=== PATIENT | female | born 1980 | race Caucasian/White ===

== ENCOUNTER 2019-06-13 18:37 | Observation (INO) | payer BC, SELFPAY ==
[2019-03-18 16:35] VITALS: BMI 39.3
--- NOTE | 2019-06-04 10:58 | PCM.HP.BLA ---
History and Physical Date of Admission: 06/13/19 Rosy Chaudhary Physician OFFICE SYSTEMS TECHNOLOGY INSTRUCTOR H&P Signed Encounter Date: 06/04/2019 Expand All Collapse All Hide copied text Anival for details Carley Boyer is a 39 year old female who presents for abnormal uterine bleeding, dysmenorrhea, adenomyosis, pelvic pain. Patient is scheduled for total upper Jeffrey hysterectomy bilateral salpingectomy cystoscopy with possible adhesiolysis and possible bowel resection. Patient has had a history of sigmoid colectomy previously. Patient has tried hormonal therapy without success. Patient declines any further treatment besides surgical management. Patient today denies any chest pain, shortness of breath or dizziness. Patient does have a mild cold but denies any fevers. ? PAST?MEDICAL?HISTORY PAST MEDICAL HISTORY Diagnosis Date ? Constipation ? ? PMH - PAST MEDICAL HISTORY OF 2005 ? TORSION OF SIGMOID VOLVULUS ? Urethral stricture unspecified ? ? HX OF URETHRAL STENOSIS ? VOLVULUS COLON (Sigmoid) 04/06/2006 ? PAST?SURGICAL?HISTORY PAST SURGICAL HISTORY Procedure Laterality Date ? COLONOSCOP W/ OR W/O [facility] SPEC ? 03/21/06 ? COLONOSCOPY W/BX ? 03/23/06 ? COLONOSCOPY W/BX ? 09/22/09 ? Normal colon/patent colorectal anastomosis ? EYE SURGERY HX ? ? ? PAST SURGICAL HISTORY OF ? 1980,1983 ? urethral dilation ? PROCTECTOMY,COMPL,COLECTOMY,BX'S ? 03/23/06 ? lap sigmoid colectomy ? FAMILY?HISTORY FAMILY HISTORY Problem Relation Age of Onset ? other (precancerous uterine cells) Mother ? ? hyst ? other (Other) Brother ? ? Half-brother ? other (Other) Father ? ? No contact with Father ? other (Other) Brother ? ? half-brother ? Thyroid Maternal Grandmother ? ? Alzheimer's Disease Maternal Grandmother ? ? other (PRECANCEROUS UTERINE CELLS) Maternal Grandmother ? ? HYST ? Hypertension Maternal Grandfather ? ? No Known Problems Daughter ? ? No Known Problems Son ? ? SOCIAL?HISTORY Social History Socioeconomic History Marital status: Spouse name: NANCI Number of children: 2 Years of education: 16 Highest education level: Not on file Occupational History Occupation: Office Employer: [employer] Social Needs Financial resource strain: Not on file Food insecurity: Worry: Not on file Inability: Not on file Transportation needs: Medical: Not on file Non-medical: Not on file Tobacco Use Smoking status: Never Smoker Smokeless tobacco: Never Used Substance and Sexual Activity Alcohol use: Yes Comment: Rarely Drug use: No Sexual activity: Yes Partners: Male control/protection: Condom Lifestyle Physical activity: Days per week: Not on file Minutes per session: Not on file Stress: Not on file Relationships Social connections: Talks on phone: Not on file Gets together: Not on file Attends latter day service: Not on file Active member of club or organization: Not on file Attends meetings of clubs or organizations: Not on file Relationship status: Not on file Intimate partner violence: Fear of current or ex partner: Not on file Emotionally abused: Not on file Physically abused: Not on file Forced sexual activity: Not on file Other Topics Concerns: Not on file Social History Narrative Not on file ? CURRENT?MEDICATIONS ? Current Outpatient Medications: levonorgestrel (MIRENA) 20 mcg/24 hours (5 yrs) 52 mg IUD 1 Each by INTRAUTERINE route one time only. fluticasone (FLONASE) 50 mcg/actuation nasal spray Use 2 Sprays in each nostril once daily. docusate sodium (COLACE) 100 mg capsule Take 1 capsule by mouth twice daily. ibuprofen (MOTRIN) 600 mg tablet Take 1 tablet by mouth every 6 hours as needed. FOR PAIN. simethicone, chewable (MYLICON) 80 mg chewable tablet Take 1 tablet by mouth every 6 hours as needed. oxyCODONE-acetaminophen (PERCOCET) 5-325 mg tablet Take 1 tablet by mouth every 4 hours as needed for Pain for up to 7 days. ? No current facility-administered medications for this visit. Allergies As of Date: 06/04/2019 Allergen Noted Reaction AUGMENTIN [AMOXICILLIN-POT CLAVUL*06/07/2010 GI Upset IODINE 02/25/2011 Hives PENICILLINS 03/21/2006 Hives ? Fully Assessed 06/04/2019 ? ? REVIEW OF SYSTEMS Abdomen: Positive pelvic pain. Suffers from constipation. Bladder: No dysuria, gross hematuria, urinary frequency, urinary urgency, or incontinence.. Expanded ROS: GENERAL: Negative for fever Allergies and current medication updated:Yes ? EXAM: BP 106/62 Ht 5' 7 (1.70m) Wt 245 lb (111.1kg) BMI 38.36 kg/(m^2). ? GENERAL: pleasant, female in no apparent distress HEENT: Normocephalic, atraumatic, mucus membranes moist and no lesions NECK: Supple, full range of motion, no adenopathy and thyroid normal DERMATOLOGY: Normal, without lesions, non-icteric and non-hirsute CARDIAC: regular rate and rhythm CHEST: Normal inspiratory effort ABDOMEN: Deferred PELVIC: deferred BIMANUAL: deferred NEURO: alert and oriented x3,exam grossly non-focal EXTREMITIES: normal ? ASSESSMENT AND PLAN: Encounter Diagnosis ? ? ICD-10-CM ? 1. Post-op pain G89.18 oxyCODONE-acetaminophen (PERCOCET) 5-325 mg tablet ? 2. Pt has been counseled on risks/benefits and alternatives of surgery including but not limited to anesthesia, bleeding, infection, injury to pelvic structures including bowel, bladder, ureters and vessels. Pt wishes to proceed with surgery at this time. I reviewed with the patient that due to her surgical history she has a high risk for injury to pelvic structures. I reviewed with patient that if her adhesions are extensive and I do not feel that this can be performed safely I will close and send her to a minimally invasive gynecologic specialist for surgical management. At this time we have general surgery Dr. William on standby due to her history of bowel resection 3. ERAS protocol reviewed 4. Consent signed 5. All post op meds given ? Rosy Saravia MD ?
[2019-06-13] VITALS (14 sets, daily range): BP systolic 83–117; BP diastolic 43–76; PULSE 68–103; RESP 16–18; TEMP 36.2–37.3; O2SAT 95–100; BMI 39.0; BMI 39.9
--- NOTE | 2019-06-13 | HYST_PTH ---
PATIENT: ELY PANDEY FALaurie LOC: MS3 U#:[id number] AGE/SX: 39/F ROOM: MS312 RE06/13/[address]: Dr. Rosy Saravia, MDDOB: 1980 BED: 1 DIS: 06/14/2019 SPEC #: [id number] RECD: 06/13/19 12:02 STATUS: RAJAN KENNA #: [id number] JANELLE: 06/13/19 00:[address]: Rosy Saravia DEPT: SURGICAL PATHOLOGY RECD BY: Bg Lora ENTERED: 06/13/19 12:02 SP TYPE: HYSTERECT OTHR DR: MD Lana Kruger MD Tissues: Uterus, NOS Procedures: Surgery Specimen Level V HEADER OPERATION: Hysterectomy, laparoscopic total, salpingectomy, cysto PRE-OP DIAGNOSIS: Abnormal uterine bleeding, dysmenorrhea, adenomyosis, pelvic pain TISSUE SUBMITTED: Uterus, cervix, bilateral fallopian tubes MICROSCOPIC DIAGNOSIS Uterus, hysterectomy: Cervix - mild chronic inflammation. Endometrium - transition endometrium. Myometrium - leiomyoma and adenomyosis. Right and left fallopian tubes - no pathologic change. AM:bandar 06/14/19 MICROSCOPIC DESCRIPTION Slides are reviewed. GROSS DESCRIPTION Received in fixative is one container labeled with the patient's name and designated uterus, cervix, bilateral fallopian tubes. The specimen consists of Received in fixative is one container labeled with the patient's name and designated uterus. The specimen consists of a hysterectomy specimen consisting of uterus with cervix and attached bilateral fallopian tubes and ovaries. The uterus with cervix weighs 175 gm and measures 12 x 8 x 6.5 cm. The serosal surface is wallace glistening. The ectocervical mucosa is unremarkable. The endocervical canal measures 4.5 cm in length and the endocervical mucosa is wallace glistening and unremarkable. The triangular endometrial cavity measures 6 cm in length and up to 3 cm in width. The endometrium is wallace, glistening and without mass lesion and measures less than 0.1 cm in thickness. The endometrium appears to be unremarkable. The sections of the uterine wall contain a nodular mass measuring 1.8 cm in diameter. Two ill-defined masses are also noted. The uninvolved uterine wall measures up to 3 cm in thickness. The right fallopian measures 6.5 cm in length and up to 0.7 cm in diameter. Fimbrial end is identified. Sections reveal unremarkable cut surfaces. The left fallopian tube is similar in appearance to the right fallopian tube and measures 7 cm in length and up to 1 cm in diameter. Fimbrial end is identified. Sections reveal unremarkable cut surfaces. Medical Records Supervisor sections are submitted in 10 cassettes as follows: 1 - anterior cervix, 2 - posterior cervix, 3 & 4 - anterior uterine wall, 5 & 6 - posterior uterine wall, 7 - nodular mass, 8 - ill-defined nodular mass, 9 - right fallopian tube, 10 - left fallopian tube. LING:bandar 06/13/19 TC: 1 CPT: 08164
[2019-06-13 06:19] LABS: Internal QC Validated? YES +Cl - CLEAR BKGD; Pregnancy, Urine Negative Negative
[2019-06-13 06:27] LABS: Hematocrit 42.3 % (37-47); Hemoglobin 14.1 g/dL (12.0-15.0); Mean Corp Hgb Conc 33.3 g/dL (32-36); Mean Corpuscular Hgb 30.2 pg (27.0-32.0); Mean Corpuscular Volume 90.6 fL (81-99); Mean Platelet Vol. 9.1 fl (6.2-12.0); Platelet Count 260 K/mm3 (150-450); RBC Distribution Width CV 11.9 % (11.6-14.6); Red Blood Count 4.67 M/mm3 (4.2-5.4); White Blood Count 12.3 K/mm3 (4.4-11.0)
[2019-06-13] MEDS: Acetaminophen 500 MG Tablet 1000 MG PO ×2 (06:31→19:19)
[2019-06-13] MEDS: Phenazopyridine 95 MG Tablet 190 MG PO (06:32)
[2019-06-13] MEDS: Celecoxib 200 MG Capsule 400 MG PO (06:32)
[2019-06-13] MEDS: Gabapentin 600 MG Tablet PO (06:33)
[2019-06-13] MEDS: dexAMETHasone 10 MG/ML Vial 8 MG IV (06:36)
[2019-06-13] MEDS: Magnesium Sulfate 4gm/100mL 4 GM/100 ML IV.SOLN. IV (06:37)
[2019-06-13] MEDS: Lactated Ringers 1,000 ML 40 ML IV (06:37)
[2019-06-13] MEDS: Enoxaparin 40 MG/0.4 ML Syringe SC (06:54)
[2019-06-13 07:16] LABS: Bedside Glucose 80 mg/dL (70-110)
[2019-06-13] MEDS: Cefazolin 2 GM in 0.9% Normal Saline 100 ML IV (07:29)
[2019-06-13] MEDS: Bupivacaine Mpf 0.5% 30 ML VIAL (08:01)
[2019-06-13] MEDS: Lubricating Jelly 60 GM Tube 30 GM TOPICAL (08:01)
[2019-06-13] MEDS: Ondansetron 4 MG/2 ML Vial IV (09:51)
[2019-06-13] MEDS: Lactated Ringers 1,000 ML 70 ML IV ×2 (10:00→20:51)
--- NOTE | 2019-06-13 10:07 | DCINST_ITS ---
Discharge Diet: No Restrictions Discharge Activity: Return to Normal Activity, May Not Drive - while taking narcotic pain medications., May Shower May resume sexual activity in: 6-8 weeks Call your doctor if your incision/area has: Continuous Slow Oozing, Sudden Increased Bleeding, Increased Pain/ Swelling, Increased Redness, Foul Smelling Discharge Call your doctor if you observe: Fever of 101 or Higher, Inability to urinate, Inability to have a bowel movement, Using more than one pad per hour Cleanse incision/area with: - - you have skin glue over incisions- do not pick off you may shower and let soap and water run over incisions and dab dry. Allergies/Adverse Reactions: Allergies loratadine Allergy (Mild, Verified 06/13/19 06:24) Unknown Penicillins Allergy (Mild, Verified 06/13/19 06:24) Unknown Iodinated Contrast Media Allergy (Verified 06/13/19 06:24) Hives Medications to take at Discharge fluticasone propionate 50 mcg/actuation nasal spray,suspension 2 spray INTRANASAL DAILY 30 Days #16 05/13/18 Primary Care Physician: Lana Simeon MD [Primary Care Provider] - Test Results: Test results from this visit will be discussed in further detail at your follow- up appointment, if applicable. Please Follow Up With: Rosy Saravia MD When: as scheduled
--- NOTE | 2019-06-13 12:16 | PCM.OPRPT ---
Report of Operation Date of Procedure: 06/13/19 Pre-Operative Diagnosis: AUB, pelvic pain Post-Operative Diagnosis: same Surgery/Procedure Performed:: Total laparoscopic hysterectomy, bilateral salpingectomy, cystoscopy Description of Surgical Findings:: Small physiologic cyst on the left ovary. Normal tubes bilaterally. Small anterior subserosal fibroid. manager credit collections: Shasha Centeno Type of Anesthesia:: General Special Medications: 0.5% marcaine Specimen's removed: Uterus, cervix, bilateral tubes Drains: wyman Estimated Blood Loss (mL): 100 Fluids Replaced: 1100 Description of Procedure: Patient take to OR and prepped and draped in usual sterile fashion in dorsal lithotomy position with her arms tucked in a neurologically safe and neutral position. The uterus sounded to 7.5 cm. The learning and development coordinator uterine manipulator was sutured into place at 12 position and wyman were placed. Attention was turned to the abdomen. Patient surgical history Dr. Pb Garcia was present for placement of ports. All port sites were infiltrated with 1% marcaine before the incisions were made. The anterior abdominal wall was tented up with towel clamps and using a direct entry approach a 5 mm intraumbilical port was placed. Intraperitoneal placement was confirmed with the laparoscope and the pneumoperitoneum was created. The patient was placed in Trendelenburg and 5 mm right and left lower quadrant ports were placed under direct visualization. Air seal rapid insufflator was used. Once inspection of the abdomen was complete there did not appear to be any significant adhesions Dr. Garcia scrubbed out at this time. The bowel was swept away. Ovaries appeared normal. The mesosalpinx starting at fimbriated end were grasped, clamped, sealed and transected with the Ligasure. The round ligaments were divided. The anterior peritoneum was dissected down to create the bladder flap with blunt dissection and the LigaSure. The uterine arteries were isolated, clamped, sealed and cut. There was minimal back bleeding from the uterus. Straight bites on uterine artieries performed to drop them off the cuff. The learning and development coordinator was used as guide to create colpotomy using monopolar tip of ligasure. once specimen was removed attention was turned to vaginal portion. The specimen was handed off. The cuff was closed with interrupted 0-vicryl figure of 8 sutures. Cystoscopy was performed bilateral ureters were visualized with good efflux. bladder was intact. wyman replaced and sponge stick placed in vagina. The pneumoperitoneum was recreated and the cuff and pedicles were hemostatic. A small oozing from the right angle of the cuff. LigaSure was used to cauterize the area. Gertrude was placed over cuff and pedicles. The skin incisions were closed with skin glue and 3-0 monocryl in the LLQ port site. The vaginal sweep was completed by me. Grafts/Implants Used: none Grafts/Implants Used: none - Complications none - Admit VTE Documentation VTE Present on Admission: Yes VTE Mechan Device Prophylaxis: SCD's VTE Pharm Prophylaxis ordered?: Yes
[2019-06-13] MEDS: oxyCODONE 5 MG Tablet PO (12:59)
[2019-06-13 14:12] LABS: Hematocrit 40.5 % (37-47); Hemoglobin 13.8 g/dL (12.0-15.0); Mean Corp Hgb Conc 34.1 g/dL (32-36); Mean Corpuscular Hgb 31.1 pg (27.0-32.0); Mean Corpuscular Volume 91.2 fL (81-99); Mean Platelet Vol. 9.2 fl (6.2-12.0); Platelet Count 250 K/mm3 (150-450); RBC Distribution Width CV 11.9 % (11.6-14.6); RBC Distribution Width SD 39.6 fl (35.1-43.9); Red Blood Count 4.44 M/mm3 (4.2-5.4); White Blood Count 18.2 K/mm3 (4.4-11.0)
[2019-06-13 14:22] LABS: Anion Gap 6 (5-15); BUN 9 mg/dL (7-18); BUN/Creat Ratio 12.4 RATIO (10-20); Calcium,Total 8.3 mg/dL (8.5-10.1); Chloride 106 mmol/L (98-107); Creatinine, Serum 0.72 mg/dL (0.55-1.02); EST Glomerular Filtration Rate 94 mL/min (>60); Est Glom Filt Rate - Afr Amer 114 mL/min (>60); Estimated Creatinine Clearance 96.26 ml/min; Glucose 143 mg/dL (74-106); Potassium 4.2 mmol/L (3.5-5.1); Sodium Level 138 mmol/L (136-145)
[2019-06-13] MEDS: Ketorolac 15 MG/ML Vial 30 MG IV ×2 (16:00→22:13)
[2019-06-13] MEDS: 0.9% NaCl Peripheral Flush Adult/Peds IV (20:51)
[2019-06-13] MEDS: Docusate Sodium 100 MG Capsule PO (22:13)
[2019-06-14] MEDS: Acetaminophen 500 MG Tablet 1000 MG PO ×2 (00:41→05:31)
[2019-06-14] MEDS: Ketorolac 15 MG/ML Vial 30 MG IV (04:43)
[2019-06-14 04:44] VITALS: BP 97/61; PULSE 71; RESP 16; TEMP 36.6; O2SAT 97
[2019-06-14 05:41] LABS: Hematocrit 34.6 % (37-47); Hemoglobin 11.6 g/dL (12.0-15.0); Mean Corp Hgb Conc 33.5 g/dL (32-36); Mean Corpuscular Hgb 30.9 pg (27.0-32.0); Mean Corpuscular Volume 92.3 fL (81-99); Mean Platelet Vol. 9.3 fl (6.2-12.0); Platelet Count 240 K/mm3 (150-450); RBC Distribution Width CV 12.1 % (11.6-14.6); RBC Distribution Width SD 41.1 fl (35.1-43.9); Red Blood Count 3.75 M/mm3 (4.2-5.4); White Blood Count 19.4 K/mm3 (4.4-11.0)
[2019-06-14 07:27] VITALS: O2SAT 95
--- NOTE | 2019-06-14 07:52 | PCM.PN.OB ---
Subjective: Patient seen at bedside, doing well. Patient reports good pain control. Patient states she is passing flatus, awaiting void trial. Coughlin catheter was removed at approximately 530 this morning. Patient reports she has not had much to eat but is tolerating fluids by mouth. She denies any nausea, vomiting, chest pain, shortness of breath. - Physical Exam General: Alert, Oriented x3 Abdomen: Soft, Non-Distended, Passing Flatus, - - Incision sites are dry and intact Extremities: No Calf Tenderness Vital Signs Temp Pulse Resp BP Pulse Ox 98 F 71 16 97/61 97 06/14/19 04:44 06/14/19 04:44 06/14/19 04:44 06/14/19 04:44 06/14/19 04:44 Oxygen Flow Rate (L/min) 6 Oxygen Delivery Method Room Air Weight: 114.1 kg Body Mass Index (BMI) 39.9 Intake and Output for Last 24 Hours 06/12/19 06/13/19 06/14/19 23:59 23:59 23:59 Intake Total 1561.12 / 1561.12 400 / 400 Output Total 2110 / 2110 1200 / 1200 Balance -548.88 / -548.88 -800 / -800 Laboratory Tests Past 24 Hrs 06/13/19 06/13/19 06/14/19 14:03 14:03 05:28 WBC 18.2 H 19.4 H RBC 4.44 3.75 L Hgb 13.8 11.6 L Hct 40.5 34.6 L MCV 91.2 92.3 MCH 31.1 30.9 MCHC 34.1 33.5 RDW Std Deviation 39.6 41.1 RDW Coeff of Jona 11.9 12.1 Plt Count 250 240 MPV 9.2 9.3 Sodium 138 Potassium 4.2 Chloride 106 Carbon Dioxide 26.0 Anion Gap 6 BUN 9 Creatinine 0.72 Estim Creat Clear Calc 96.26 Est GFR (MDRD) Af Amer 114 Est GFR (MDRD) Non-Af 94 BUN/Creatinine Ratio 12.4 Glucose 143 H Calcium 8.3 L Medical Necessity - Tobacco Use Smoking Status: Never smoker Tobacco Use: Non-smoker Assessment/Plan All Active Problems (Last Reviewed 03/18/19 @ 16:36 by Nancy Leonard) Sinusitis, acute (Acute) We have day #1, status post a total laparoscopic hysterectomy, bilateral salpingectomy, cystoscopy Patient doing well today vital signs are stable Labs reviewed Voiding trial-if unable to void by lunchtime discussed with the patient that we will send her home with a Coughlin to leg bag and then she will follow-up in the office next week. Anticipate DC home after voiding and tolerating regular diet
[2019-06-14 08:46] VITALS: BP 102/63; PULSE 65; RESP 18; TEMP 36.8; O2SAT 98
[2019-06-14] MEDS: oxyCODONE 5 MG Tablet PO (09:00)
[2019-06-14] MEDS: Docusate Sodium 100 MG Capsule PO (09:00)
--- NOTE | 2019-06-14 09:02 | NURSING ---
DR MCALLISTER NOTIFIED OF PT VOID & TOLERATING BREAKFAST. OK TO DC PT HOME.
[2019-06-14 09:23] VITALS: BP 102/63; PULSE 65; RESP 18; TEMP 36.8; O2SAT 98
== END 2019-06-14 09:22 | disposition home or self-care (01) ==
LOC: MS3 18:45
PROVIDERS: Admitting Provider Obstetrics & Gynecology; Family Provider Internal Medicine; PCP Internal Medicine; Referring Provider Obstetrics & Gynecology; Visit Provider Obstetrics & Gynecology
PROC: 0UT94ZZ Resection of Uterus, Percutaneous Endoscopic Approach (ICD-10-PCS; CPT 58571; principal; 2019-06-13 07:10)
DX: D25.2 Subserosal leiomyoma of uterus (principal); N93.8 Other specified abnormal uterine and vaginal bleeding; N94.6 Dysmenorrhea, unspecified; N80.0 Endometriosis of uterus
CPT/HCPCS: 58571; 36415; 80048; 81025; 82962; 85027; 86850; 86900; 86901; 88307; 96374; 96376; 99218; J7120; A4216; G0378; G0379; J2405

== ENCOUNTER → 2019-10-04 08:55 | Outpatient (CLI) | payer BC, SELFPAY ==
[2019-06-13 19:39] VITALS: BMI 39.9
--- NOTE | 2019-10-04 09:00 | RAD_ITS ---
STUDY: X-RAY - ESOPHAGUS (BARIUM SWALLOW) WITH FLUOROSCOPY REASON FOR EXAM: Female, 39 years old. Choking easily and often TECHNIQUE: 14 view(s) of the esophagus were obtained following swallowing of barium. FLUOROSCOPY TIME (if supplied): (0:30) minutes/seconds COMPARISON: None. FINDINGS: There is no demonstrated esophageal foreign body. There is no demonstrated stricture or mucosal abnormality. Normal gastroesophageal junction, without a demonstrated hiatal hernia. The patient ingested a 12 mm tablet of barium without any difficulty. Normal visualized aortic arch and descending thoracic aorta. Normal visualized pulmonary parenchyma. Normal visualized osseous structures of the thorax. RAD/Esophagus Only IMPRESSION: Normal plain film x-ray examination (barium swallow) of the esophagus. Electronically Signed: Manuel Chino, at 10:34 EST , Service support ,
== END ==
PROVIDERS: Family Provider Internal Medicine; PCP Internal Medicine; Referring Provider Nurse Practitioner Adult Health; Visit Provider Nurse Practitioner Adult Health
DX: K44.9 Diaphragmatic hernia without obstruction or gangrene (principal); R05 Cough
CPT/HCPCS: 74220

== ENCOUNTER 2021-01-08 11:00 | Outpatient (RCR) | payer BC, SELFPAY ==
[2019-06-13 19:39] VITALS: BMI 39.9
== END 2021-03-23 23:59 ==
LOC: IMMUN 11:00
PROVIDERS: PCP Internal Medicine; Visit Provider Family Medicine
DX: Z23 Encounter for immunization (principal)
CPT/HCPCS: 0001A; 0002A; 91300

== ENCOUNTER → 2022-06-01 | Outpatient (CLI) | payer BC, SELFPAY ==
[2022-06-01 12:48] LABS: Absolute Lymphocyte Count 2.15 X10^3/uL (0.83-4.51); Absolute Neutrophil Count 4.7 X10^3/uL (2.0-7.7); Basophil# 0.07 X10^3/uL; Basophil% 0.9 % (0-1); Eosinophil# 0.12 X10^3/uL; Eosinophils% 1.6 % (0-5); Hematocrit 41.9 % (37-47); Hemoglobin 13.8 g/dL (12.0-15.0); Lymphocyte # 2.15 X10^3/ul (0.83-4.51); Lymphocyte % 28.9 % (19-41); Mean Corp Hgb Conc 32.9 g/dL (32-36); Mean Corpuscular Hgb 30.1 pg (27.0-32.0); Mean Corpuscular Volume 91.3 fL (81-99); Mean Platelet Vol. 10.1 fl (6.2-12.0); Monocyte# 0.37 X10^3/uL; NRBC Flagged by Analyzer 0 % (0-5); Neutrophil # 4.72 X10^3/uL (2.7-7.7); Neutrophil % 63.3 % (47-70); Platelet Count 272 K/mm3 (150-450); RBC Distribution Width CV 12.1 % (11.6-14.6); RBC Distribution Width SD 40.3 fl (35.1-43.9); Red Blood Count 4.59 M/mm3 (4.2-5.4); White Blood Count 7.5 K/mm3 (4.4-11.0)
[2022-06-01 13:19] LABS: Albumin, Serum 3.8 g/dL (3.2-5.0); BUN 10 mg/dL (7-18); Creatinine, Serum 0.63 mg/dL (0.55-1.02); EST Glomerular Filtration Rate 110 mL/min (>60); Est Glom Filt Rate - Afr Amer 133 mL/min (>60); Glucose 91 mg/dL (74-106)
[2022-06-01 13:20] LABS: ALB/GLOB Ratio 1.2 RATIO (0.9-2.4); AST(SGOT) 13 U/L (15-37); Alanine Aminotransfer ALT/SGPT 17 U/L (13-56); Alkaline Phosphatase 31 U/L (45-117); Anion Gap 7 (5-15); Calcium,Total 8.9 mg/dL (8.5-10.1); Chloride 106 mmol/L (98-107); Cholesterol 235 mg/dL (200); Globulin 3.2 g/dL (2.2-4.2); High Density Lipoprotein 55 mg/dL; Potassium 4.5 mmol/L (3.5-5.1); Sodium Level 139 mmol/L (136-145); Triglycerides 84 mg/dL; Very Low Density Lipoprotein 17 mg/dL (5-40)
== END | disposition home or self-care (01) ==
LOC: BIMLAB 10:27
PROVIDERS: PCP Internal Medicine; Visit Provider Internal Medicine
DX: R05.3 Chronic cough (principal); E66.9 Obesity, unspecified
CPT/HCPCS: 36415; 80053; 80061; 85025

== ENCOUNTER → 2022-07-05 | Outpatient (CLI) | payer BC, SELFPAY | END | disposition home or self-care (01) | LOC: LABSPEC 14:22 | PROVIDERS: PCP Internal Medicine; Visit Provider Nurse Practitioner Family | DX: R05.9 Cough, unspecified (principal) | CPT/HCPCS: 87635; U0003; U0005 ==

== ENCOUNTER → 2023-04-24 | Outpatient (CLI) | payer BC, SELFPAY ==
[2023-04-24 15:40] LABS: Absolute Lymphocyte Count 2.69 X10^3/uL (0.83-4.51); Absolute Neutrophil Count 7.7 X10^3/uL (2.0-7.7); Basophil% 0.9 % (0-1); Eosinophils% 0.9 % (0-5); Hematocrit 43.6 % (37-47); Hemoglobin 14.2 g/dL (12.0-15.0); Lymphocyte # 2.69 X10^3/ul (0.83-4.51); Lymphocyte % 24.3 % (19-41); Mean Corp Hgb Conc 32.6 g/dL (32-36); Mean Corpuscular Hgb 30.1 pg (27.0-32.0); Mean Corpuscular Volume 92.4 fL (81-99); Mean Platelet Vol. 9.7 fl (6.2-12.0); Monocyte% 4.5 % (0-10); NRBC Flagged by Analyzer 0 % (0-5); Neutrophil # 7.65 X10^3/uL (2.7-7.7); Platelet Count 316 K/mm3 (150-450); RBC Distribution Width CV 12.1 % (11.6-14.6); RBC Distribution Width SD 41.1 fl (35.1-43.9); Red Blood Count 4.72 M/mm3 (4.2-5.4); White Blood Count 11.1 K/mm3 (4.4-11.0)
[2023-04-24 15:58] LABS: ALB/GLOB Ratio 1.1 RATIO (0.9-2.4); AST(SGOT) 17 U/L (15-37); Alanine Aminotransfer ALT/SGPT 34 U/L (13-56); Albumin, Serum 3.8 g/dL (3.2-5.0); Alkaline Phosphatase 36 U/L (45-117); Anion Gap 3 (5-15); BUN 12 mg/dL (7-18); BUN/Creat Ratio 16.7 RATIO (10-20); Calcium,Total 9.1 mg/dL (8.5-10.1); Chloride 106 mmol/L (98-107); Cholesterol 265 mg/dL (200); Creatinine, Serum 0.72 mg/dL (0.55-1.02); EST Glomerular Filtration Rate 93 mL/min (>60); Est Glom Filt Rate - Afr Amer 113 mL/min (>60); Globulin 3.5 g/dL (2.2-4.2); Glucose 81 mg/dL (74-106); High Density Lipoprotein 73 mg/dL; Potassium 4.1 mmol/L (3.5-5.1); Protein, Total 7.3 g/dL (6.4-8.2); Sodium Level 137 mmol/L (136-145); Triglycerides 93 mg/dL; Very Low Density Lipoprotein 19 mg/dL (5-40)
== END | disposition home or self-care (01) ==
LOC: BIMLAB 13:33
PROVIDERS: PCP Internal Medicine; Referring Provider Internal Medicine; Visit Provider Internal Medicine
DX: Z00.00 Encounter for general adult medical examination without abnormal findings (principal)
CPT/HCPCS: 36415; 80053; 80061; 85025

== ENCOUNTER 2023-06-06 08:52 | Day surgery (SDC) | payer BC, SELFPAY ==
--- NOTE | 2023-06-06 09:30 | PCM.HP.BLA ---
History and Physical Date of Admission: 06/06/23 Visit Reasons: R SIDE ABD PAIN HX OF TWISTED BOWEL Chief Complaint: right side abd pain/hx twisted bowel Is patient in pain?: Yes Allergies Penicillins Allergy (Mild, Verified 05/15/23 08:41) HivesIodinated Contrast Media Allergy (Verified 05/15/23 08:41) Hives Medications cyclobenzaprine 10 mg tablet 5 - 10 mg (0.5 - 1 x 10 mg) PO TID PRN muscle spasm #30 tabs 07/05/22 [Rx Confirmed 05/15/23] fluticasone propionate 50 mcg/actuation nasal spray,suspension 2 spray intranasal DAILY 90 days #16 grams 05/09/23 [Rx Confirmed 05/15/23] PFSH Medical History Acute bronchitis Acute maxillary sinusitis Back pain Chronic cough Colon cancer screening Cough Health care maintenance History of fracture as a child history of herniated disk IBS (irritable bowel syndrome) Injury of laryngeal nerve Obesity (BMI 30-39.9) Preventative health care Reactive airway disease Seasonal allergies Surgical History History of eye surgery History of hysterectomy History of partial surgical removal of colon Family History Grandmother Alzheimer disease Thyroid disorder ArthritisGrandfather Hypertension ArthritisMother Arthritis Social History Smoking Status: Never smoker alcohol intake: never substance use type: does not use what type of physical activity do you participate in: walking frequency: 3-4 times per week HPI HPI Surgical H&P: Yes HPI: Patient is a 43 y/o F I am following for change in bowel habits. Patient notes a history of a sigmoid volvulus with obstruction at the age of [address] Álvarez performed an emergency colonoscopy with notable significant distention of the sigmoid area and visualization of hepatic flexure consistent with volvulus. Dr. Álvarez then performed a laparoscopic left hemicolectomy on 03/21/2006. Patient at that time was 3 months as well. Patient notes she had a second colonoscopy during the same hospitalization on 03/23/2006. Patient notes she has had a history of constipation and change in bowel habits throughout her life. She does not take any specific medication to assist with her bowel habits. She notes she was told not to take a fiber supplement ever at her post-operative visit following her colon surgery. Patient notes since her surgery she has had off and on thin stool. She notes she may go 2-3 days without having a bowel movement. She states then she will have some diarrhea followed by normal stool. She notes most of the time she has to assist her bowel movements coming out of the rectum by pushing on her vagina to allow the stool to come out. Patient notes approximately 2 weeks ago she had abdominal pain similar to the pain she had when she had the volvulus. She noted the pain lasted for 2 hours and then went away. She notes she has not had another episode since that time. Patient notes that her pain occurred during a period of constipation. Patient notes she had a partial hysterectomy in 2019 at an outside facility. 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 She has been worked up for GERD and has had a previous upper scope, which ruled out reflux disease. She does not currently have any reflux disease. ROS General General: No weight change, appetite, fatigue, colon cancer, breast cancer or weakness HEENT HEENT: Yes eye surgery; No difficulty swallowing, eye injury, swollen glands or hoarseness Endo Endocrine: No thyroid disease, diabetes mellitus, thyroid cancer, Hair loss, heat intolerance or cold intolerance Skin Skin: No rash or changing moles Musc Musculoskeletal: No back problems, arthritis, rheumatoid arthritis, gout or joint pain Cardio Cardiovascular: No murmur, pacemaker, heart disease, atrial fibrillation, high blood pressure, heart attack, heart stent, palpitations, shortness of breat with exertion or chest pain Psych Psychiatric: No depression, anxiety or hearing voices Resp Respiratory: No shortness of breath, No sleep apnea, Yes cough, No COPD, No asthma, No emphysema and No wheezing Gastro Gastrointestinal: Yes abdominal pain, No nausea or vomiting, No diarrhea, Yes constipation, No blood in stool, No acid reflux, Yes hemorrhoids, No ulcers, No gallbladder problem and No black,tarry stools Rock Hematologic: No blood thinners, No blood disorders, No bleeding, No anemia and No blood clots Neuro Neurologic: No system reviewed and no additional complaints, except as documented, No as per HPI, No abnormal gait, No abnormal hearing, No abnormal movements, No abnormal speech, No behavioral changes, No burning sensations, No confusion, No convulsions, No disequilibrium, No dizziness, No localized weakness, No frequent falls, No headache(s), No lack of coordination, No loss of vision, No memory loss, No numbness, No other visual disturbances, No radicular pain, No restless legs, No sensory deficit, No syncope, No tingling, No tremor(s), No weakness and No other Exam Const General: cooperative, healthy appearing, comfortable and no acute distress Nutritional Appearance: obese [facility] Head: normal to inspection Eyes General: appearance normal, both eyes and all related structures Neck Neck: normal visual inspection Neck mass: No Chest Chest palpation & inspection: normal inspection of the chest Resp Effort & Inspection: normal respiratory effort Auscultation: clear to auscultation bilaterally Cardio Rate: regular rate Rhythm: regular rhythm GI Inspection: normal to inspection, large pannus and obesity Palpation: soft Auscultation: normal bowel sounds Other: Tenderness noted in the right upper and lower quadrants Musc Cervical Spine: normal cervical lordosis Skin General: no rashes or lesions noted Neuro General: no focal motor deficits and CN's II-XI intact bilaterally Extrem General: normal to inspection Psych Appearance: grossly normal Affect: normal affect Assessment and Plan Assessment and Plan (1) Colon cancer screening: Status: Acute Plan: Dr. Álvarez will plan to perform a screening colonoscopy with possible biopsies. Patient does have a history of constipation, I will instruct the patient to do an additional day of prep to assist with the colon cleanse. Procedure details, risks and benefits have been explained. Patient has had the opportunity to ask and have questions answered. Patient verbally understands and agrees with the plan I have examined the patient and the H&P has been reviewed. There are no clinical changes since date of exam. Justice Álvarez M.D., F.A.C.S.
[2023-06-06 09:34] VITALS: BP 134/82; PULSE 82; RESP 16; TEMP 36.4; O2SAT 100; BMI 37.0
[2023-06-06] MEDS: Lactated Ringers 1,000 ML 15 ML IV (09:39)
[2023-06-06 10:10] VITALS: BP 113/75; BP 134/82; PULSE 90; RESP 16; TEMP 37.1; O2SAT 94
--- NOTE | 2023-06-06 10:13 | OP.COLON_ITS ---
Patient Name: Carley Boyer Procedure Date: 06/06/2023 9:30 AM Date of : 1980 Age: 43 Procedure: Colonoscopy Indications: Screening for colorectal malignant neoplasm Providers: Justice Álvarez MD Referring MD: Armond Diego MD Medicines: See the Anesthesia note for documentation of the administered medications Patient Profile: Last Colonoscopy: none. The patient's first colonoscopy is today. Complications: No immediate complications. Procedure: Pre-Anesthesia Assessment: - Prior to the procedure, a History and Physical was performed, and patient medications and allergies were reviewed. The patient's tolerance of previous anesthesia was also reviewed. The risks and benefits of the procedure and the sedation options and risks were discussed with the patient. All questions were answered, and informed consent was obtained. Prior Anticoagulants: The patient has taken no anticoagulant or antiplatelet agents. ASA Grade Assessment: II - A patient with mild systemic disease. After reviewing the risks and benefits, the patient was deemed in satisfactory condition to undergo the procedure. After I obtained informed consent, the scope was passed under direct vision. Throughout the procedure, the patient's blood pressure, pulse, and oxygen saturations were monitored continuously. The Colonoscope was introduced through the anus and advanced to the cecum, identified by appendiceal orifice and ileocecal valve. The colonoscopy was performed without difficulty. The patient tolerated the procedure well. The quality of the bowel preparation was good. The ileocecal valve and the appendiceal orifice were photographed. Scope In: 9:49:10 AM Scope Withdrawal Time 0 hours 6 minutes 2 seconds Scope Out: 10:03:16 AM Total Procedure Duration Time 0 hours 14 minutes 6 seconds Findings: The digital rectal exam findings include non-thrombosed external hemorrhoids, non-thrombosed internal hemorrhoids and internal hemorrhoids that prolapse with straining, but spontaneously regress to the resting position (Grade II). Pertinent negatives include normal sphincter tone. There was evidence of a prior end-to-end colo-colonic anastomosis in the distal sigmoid colon. This was patent and was characterized by healthy appearing mucosa. The mid sigmoid colon was significantly tortuous. The lumen of the descending colon, transverse colon, ascending colon and cecum was significantly dilated. Impression: - Non-thrombosed external hemorrhoids, non-thrombosed internal hemorrhoids and internal hemorrhoids that prolapse with straining, but spontaneously regress to the resting position (Grade II) found on digital rectal exam. - Patent end-to-end colo-colonic anastomosis, characterized by healthy appearing mucosa. - Tortuous colon. - Dilated in the descending colon, in the transverse colon, in the ascending colon and in the cecum. - No specimens collected. Plan for an outpatient gallbladder ultrasound because of the patient's epigastric pain. I recommend a Gastrografin enema to get a hard copy picture of the positioning of the colon. I have some concerns that there is possibly a partial volvulus of the mid sigmoid proximal to the surgical anastomosis that was performed in 2005 Recommendation: - Discharge patient to home. - Resume previous diet. - Continue present medications. - Repeat colonoscopy in 10 years for screening purposes. - Refer to a colo-rectal surgeon in 2 weeks. Procedure Code(s): --- Professional --- 51657, Colonoscopy, flexible; diagnostic, including collection of specimen(s) by brushing or washing, when performed (separate procedure) CPT copyright 2021 [employer]. All rights reserved. The codes documented in this report are preliminary and upon cdc associate review may be revised to meet current compliance requirements. Justice Álvarez MD 06/06/2023 10:12:27 AM This report has been signed electronically. Number of Addenda: 0 Note Initiated On: 06/06/2023 9:30 AM
--- NOTE | 2023-06-06 10:13 | OP.CCLET_ITS ---
06/06/2023 Armond Diego MD [address] [place] [address] [place] [address] Re : Colonoscopy procedure for Carley Boyer Dear Dr. Diego This procedure was performed on Tuesday, June 06, 2023. My impressions and recommendations are as follows: Impressions : - Non-thrombosed external hemorrhoids, non-thrombosed internal hemorrhoids and internal hemorrhoids that prolapse with straining, but spontaneously regress to the resting position (Grade II) found on digital rectal exam. - Patent end-to-end colo-colonic anastomosis, characterized by healthy appearing mucosa. - Tortuous colon. - Dilated in the descending colon, in the transverse colon, in the ascending colon and in the cecum. - No specimens collected. Plan for an outpatient gallbladder ultrasound because of the patient's epigastric pain. I recommend a Gastrografin enema to get a hard copy picture of the positioning of the colon. I have some concerns that there is possibly a partial volvulus of the mid sigmoid proximal to the surgical anastomosis that was performed in 2005 Recommendations : - Discharge patient to home. - Resume previous diet. - Continue present medications. - Repeat colonoscopy in 10 years for screening purposes. - Refer to a colo-rectal surgeon in 2 weeks. My findings are described in the full procedure note, which is enclosed. If I can be of further assistance, please feel free to contact me at Doctor phone number(s): Work: . Sincerely, Justice Álvarez MD 06/06/2023 10:12:27 AM This report has been signed electronically.
[2023-06-06 10:15] VITALS: BP 120/84; BP 134/82; PULSE 100; RESP 16; O2SAT 99
[2023-06-06 10:20] VITALS: BP 116/92; BP 134/82; PULSE 87; RESP 16; O2SAT 100
[2023-06-06 10:25] VITALS: BP 122/77; BP 134/82; PULSE 79; RESP 16; TEMP 36.8; O2SAT 100
[2023-06-06 10:59] VITALS: BP 134/82
== END 2023-06-06 11:04 | disposition home or self-care (01) ==
LOC: EN 08:52 → AC 08:54
PROVIDERS: PCP Internal Medicine; Referring Provider Internal Medicine; Visit Provider Surgery
PROC: 0DJD8ZZ Inspection of Lower Intestinal Tract, Via Natural or Artificial Opening Endoscopic (ICD-10-PCS; CPT 45378; principal; 2023-06-06 09:55)
DX: Z12.11 Encounter for screening for malignant neoplasm of colon (principal); Z98.0 Intestinal bypass and anastomosis status; K64.1 Second degree hemorrhoids; R19.5 Other fecal abnormalities; R10.13 Epigastric pain; E66.9 Obesity, unspecified; Z68.38 Body mass index [BMI] 38.0-38.9, adult; Z90.49 Acquired absence of other specified parts of digestive tract
CPT/HCPCS: 45378; J7120

== ENCOUNTER → 2023-06-07 | Outpatient (CLI) | payer BC, SELFPAY ==
--- NOTE | 2023-06-07 07:24 | US_ITS ---
INDICATION: RUQ pain x 6 weeks -- Patient had a colonoscopy yesterday and sates she has a twisted colon EXAMINATION: Ultrasound US Abdomen RUQ (limited) TECHNIQUE: Meek-scale and color Doppler imaging was performed of the abdomen. COMPARISON: FINDINGS: LIVER: There is normal echotexture measuring 17.7 cm. No focal hepatic lesion. No intrahepatic biliary ductal dilatation. There is no free fluid. GALLBLADDER AND BILIARY TREE: No shadowing gallstone, pericholecystic fluid or gallbladder wall thickening is demonstrated. The proximal common bile duct measures 4.7 mm, which is within normal limits for the patient''s age. SONOGRAPHIC HOLT''S SIGN: Negative. PANCREAS: Limited visualization of the pancreas. No pancreatic ductal dilatation. SPLEEN: The spleen is normal in size and homogeneous in echotexture. RIGHT KIDNEY: 10.4 x 5.9 x 4.1 cm. The cortex is 14 mm. There is no hydronephrosis. No shadowing calculus, focal lesion, or perinephric collection is demonstrated. Limited visualization of the abdominal aorta and IVC. US/Gallbladder IMPRESSION: No acute sonographic abnormality is demonstrated in the abdomen. Electronically Signed: Sincere Huber DO at 11:17 EDT ,
== END | disposition home or self-care (01) ==
PROVIDERS: PCP Internal Medicine; Referring Provider Surgery; Visit Provider Surgery
DX: R10.11 Right upper quadrant pain (principal)
CPT/HCPCS: 76705

== ENCOUNTER → 2023-06-09 | Outpatient (CLI) | payer BC, SELFPAY ==
--- NOTE | 2023-06-09 08:51 | RAD_ITS ---
INDICATION: VOLVULUS -- EORDER NOT PULLING THROUGH EXAMINATION/TECHNIQUE: Single contrast Gastrograffin enema was performed. Total Fluoroscopic Time: 14 seconds AND number of Fluoroscopic Images: 9 spot images OR Radiation dosage index: 43.57 mGy COMPARISON: None. FINDINGS: Single contrast study precludes mucosal detail. The large bowel splenic flexure is air-filled and prominent on precontrast imaging. Rectal contrast was injected. Gastrografin contrast was able to reach the cecum. There is demonstration of some redundancy of large bowel in the right hemicolon. There is a long segment of narrowing of the sigmoid colon with dilated descending colon and splenic flexure. No definitive intraluminal filling defects are identified although assessment is limited. No extravasation of contrast. RAD/Barium Enema w/Air Contrast IMPRESSION: 1. No obstruction or contrast extravasation. 2. Prominent dilated splenic flexure and descending colon to the level of the sigmoid colon where there is a long segment of narrowing. This is present before and after the administration of contrast. Findings are nonspecific but may relate to a mass, long segment stricture, or chronic paralysis/muscular abnormality involving the sigmoid colon amongst other differential considerations. Correlation with colonoscopy findings is recommended. A CT enterography can also be obtained for further assessment. 3. Some redundancy of large bowel anatomy in the right hemicolon. Electronically Signed: Armand Mak DO at 15:28 EDT ,
== END | disposition home or self-care (01) ==
LOC: RAD 08:48
PROVIDERS: PCP Internal Medicine; Referring Provider Surgery; Visit Provider Surgery
DX: K56.2 Volvulus (principal)
CPT/HCPCS: 74280

== ENCOUNTER → 2024-10-02 | Outpatient (CLI) | payer BC, SELFPAY ==
[2024-10-02 17:38] LABS: Absolute Lymphocyte Count 2.44 X10^3/uL (0.83-4.51); Absolute Neutrophil Count 4.8 X10^3/uL (2.0-7.7); Basophil# 0.09 X10^3/uL; Basophil% 1.1 % (0-1); Eosinophil# 0.21 X10^3/uL; Eosinophils% 2.6 % (0-5); Hematocrit 40.3 % (37-47); Hemoglobin 13.3 g/dL (12.0-15.0); Lymphocyte # 2.44 X10^3/ul (0.83-4.51); Mean Corpuscular Hgb 29.2 pg (27.0-32.0); Mean Corpuscular Volume 88.6 fL (81-99); Mean Platelet Vol. 9.5 fl (6.2-12.0); Monocyte# 0.57 X10^3/uL; NRBC Flagged by Analyzer 0 % (0-5); Neutrophil % 59.2 % (47-70); Platelet Count 307 K/mm3 (150-450); RBC Distribution Width CV 11.9 % (11.6-14.6); RBC Distribution Width SD 38.2 fl (35.1-43.9); Red Blood Count 4.55 M/mm3 (4.2-5.4); White Blood Count 8.1 K/mm3 (4.4-11.0)
[2024-10-02 17:51] LABS: ALB/GLOB Ratio 1.1 RATIO (0.9-2.4); AST(SGOT) 13 U/L (15-37); Alanine Aminotransfer ALT/SGPT 23 U/L (13-56); Albumin, Serum 3.7 g/dL (3.2-5.0); Alkaline Phosphatase 37 U/L (45-117); Anion Gap 2 (5-15); BUN 9 mg/dL (7-18); Calcium,Total 9.3 mg/dL (8.5-10.1); Chloride 107 mmol/L (98-107); Cholesterol 271 mg/dL (200); Creatinine, Serum 0.64 mg/dL (0.55-1.02); EST Glomerular Filtration Rate 106 mL/min (>60); Est Glom Filt Rate - Afr Amer 128 mL/min (>60); Globulin 3.5 g/dL (2.2-4.2); Glucose 90 mg/dL (74-106); High Density Lipoprotein 62 mg/dL; Protein, Total 7.2 g/dL (6.4-8.2); Sodium Level 138 mmol/L (136-145); Triglycerides 190 mg/dL; Very Low Density Lipoprotein 38 mg/dL (5-40)
== END | disposition home or self-care (01) ==
LOC: BIMLAB 15:59
PROVIDERS: PCP Internal Medicine; Referring Provider Internal Medicine; Visit Provider Internal Medicine
DX: Z00.00 Encounter for general adult medical examination without abnormal findings (principal)
CPT/HCPCS: 36415; 80053; 80061; 85025

== ENCOUNTER → 2024-10-24 | Outpatient (CLI) | payer BC, SELFPAY ==
--- NOTE | 2024-10-24 10:18 | BI_ITS ---
MAMMOGRAPHY - BILATERAL SCREENING REASON FOR EXAM: Female, 44 years old. Routine annual screening examination. PERTINENT HISTORY: Non-contributory. TECHNIQUE: Digital bilateral breast denzel (3D mammographic acquisition) in the CC and MLO projections. 2-D mediolateral oblique (MLO) and craniocaudad (CC) views of both breasts were obtained. CAD: Full Field Digital Mammography with Computer Added Detection was performed. COMPARISON: Comparison is made with prior outside examination dated April 11, 2023. FINDINGS: Breast Composition: The breasts are extremely dense, which lowers the sensitivity of mammography. There are no dominant masses or suspicious calcifications. No other significant abnormalities are identified. There has been no significant change since the prior study. BI/SCRN MAMM (CAD)W/DENZEL BILAT IMPRESSION: Stable bilateral screening mammogram. Yearly follow-up mammogram recommended. (A) ASSESSMENT CATEGORY: BIRADS Category 1: Negative. A letter regarding these results will be sent to the patient by the facility within 30 days. Approximately 10% of breast cancers are not detected by mammography. A normal mammogram should not delay biopsy of a clinically suspicious abnormality. [id number] Electronically Signed: Manuel Chino MD at 11:05 EST ,
== END | disposition home or self-care (01) ==
LOC: OPBI 10:17
PROVIDERS: PCP Internal Medicine; Referring Provider Internal Medicine; Visit Provider Internal Medicine
DX: Z12.31 Encounter for screening mammogram for malignant neoplasm of breast (principal)
CPT/HCPCS: 77063; 77067

== ENCOUNTER → 2025-06-20 | Outpatient (CLI) | payer BC, SELFPAY | END | disposition home or self-care (01) | LOC: LABSPEC 15:23 | PROVIDERS: PCP Internal Medicine; Referring Provider Physician Assistant Surgical; Visit Provider Physician Assistant Surgical | DX: R82.90 Unspecified abnormal findings in urine (principal) | CPT/HCPCS: 87086; 87088 ==